=== PATIENT | female | born 1970 | race African-American/Black ===

== ENCOUNTER 2017-06-19 20:16 | Emergency (ER) | payer BC ==
[2017-06-19 20:27] VITALS: BP 153/110; PULSE 107; TEMP 100.2; BMI 64.3
--- NOTE | 2017-06-19 20:55 | PDOC ---
History of Present Illness - General History Source: Patient Exam Limitations: No Limitations - History of Present Illness Initial Comments: 06/19/17 21:00 The patient is a 46 year old female with a significant PMH of arthritis, anxiety, asthma, and recurrent bronchitis who presents to the emergency department with abdominal pain beginning approximately today. The patient describes the abdominal pain as localized in the epigastric region and with associated bloating. The patient also reports difficulty passing stool today. She reports having a similar episode last week which was relieved with laxatives. The patient denies chest pain, shortness of breath, headache and dizziness. Denies fever, chills, nausea, vomit, diarrhea and constipation. Denies dysuria, frequency, urgency and hematuria. Allergies: NKDA Past surgical history: None reported. Social history: No reported cigarette, alcohol, or drug use. PCP: Dr. Shepard 06/19/17 21:04 <David Domingo - Last Filed: 06/19/17 21:00> - General History Source: Patient <Tee Brown - Last Filed: 06/20/17 01:48> - General Chief Complaint: Pain Stated Complaint: STOMACH PAIN Time Seen by Provider: 06/19/17 20:38 Past History <David Domingo - Last Filed: 06/19/17 21:00> - Past Medical History Asthma: Yes HTN: Yes Psychiatric Problems: Yes (ANXIETY) - Family Disease History Family Disease History: Heart Disease: Father - Immunization History Immunization Up to Date: Yes - Suicide/Smoking/Psychosocial Hx Smoking Status: No Smoking History: Never smoked Have you smoked in the past 12 months: No Number of Cigarettes Smoked Daily: 0 Cigars Per Day: 0 Information on smoking cessation initiated: No Hx Alcohol Use: No Drug/Substance Use Hx: No Substance Use Type: None Hx Substance Use Treatment: No <Tee Brown - Last Filed: 06/20/17 01:48> - Past Medical History Allergies/Adverse Reactions: Allergies Allergy/AdvReac Type Severity Reaction Status Date / Time No Known Allergies Allergy Verified 06/19/17 20:27 Home Medications: Ambulatory Orders Albuterol Sulfate Inhaler - 1 - 2 inhaler IH PRN PRN 04/22/16 Albuterol Sulfate Inhaler - [Ventolin HFA Inhaler -] 1 - 2 inh PO QID PRN #1 inhaler 11/29/16 Ibuprofen 800 mg PO TID #30 tablet 06/20/17 Levofloxacin [Levaquin -] 500 mg PO DAILY #7 tablet 06/20/17 Metronidazole [Flagyl] 500 mg PO BID #14 tablet 06/20/17 Ondansetron [Zofran *Odt*] 4 mg SL TID #30 od.tablet 06/20/17 Review of Systems - Review of Systems Able to Perform ROS?: Yes Comments:: 06/19/17 21:04 CONSTITUTIONAL: Absent: fever, chills, diaphoresis, generalized weakness, malaise, loss of appetite HEENT: Absent: rhinorrhea, nasal congestion, throat pain, throat swelling, difficulty swallowing, mouth swelling, ear pain, eye pain, visual Changes CARDIOVASCULAR: Absent: chest pain, syncope, palpitations, irregular heart rate, lightheadedness , peripheral edema RESPIRATORY: Absent: cough, shortness of breath, dyspnea with exertion, orthopnea, wheezing, stridor, hemoptysis GASTROINTESTINAL: (+) Epigastric pain. (+) Nausea. (+) Constipation. Absent: abdominal distension, vomiting, diarrhea, melena, hematochezia GENITOURINARY: Absent: dysuria, frequency, urgency, hesitancy, hematuria, flank pain, genital pain MUSCULOSKELETAL: Absent: myalgia, arthralgia, joint swelling SKIN: Absent: rash, itching, pallor HEMATOLOGIC/IMMUNOLOGIC: Absent: easy bleeding, easy bruising, lymphadenopathy, frequent infections ENDOCRINE: Absent: unexplained weight gain, unexplained weight loss, heat intolerance, cold intolerance NEUROLOGIC: Absent: headache, focal weakness or paresthesias, dizziness, unsteady gait, seizure, mental status changes, bladder or bowel incontinence PSYCHIATRIC: Absent: anxiety, depression, suicidal or homicidal ideation, hallucinations. <David Domingo - Last Filed: 06/19/17 21:00> *Physical Exam - Vital Signs Last Vital Signs Temp Pulse Resp BP Pulse Ox 100.2 F H 107 H 23 153/110 100 06/19/17 20:24 06/19/17 20:24 06/19/17 20:24 06/19/17 20:24 06/19/17 20:24 - Physical Exam Comments: 06/19/17 21:04 GENERAL: Well developed, well nourished. Awake and alert. No acute distress. HEENT: Normocephalic, atraumatic. PERRLA, EOMI. No conjunctival pallor. Sclera are non- icteric. Moist mucous membranes. Oropharynx is clear. NECK: Supple. Full ROM. No JVD. Carotid pulses 2+ and symmetric, without bruits. No thyromegaly. No lymphadenopathy. CARDIOVASCULAR: Regular rate and rhythm. No murmurs, rubs, or gallops. Distal pulses are 2+ and symmetric. PULMONARY: No evidence of respiratory distress. Lungs clear to auscultation bilaterally. No wheezing, rales or rhonchi. ABDOMINAL: (+) Mild tenderness to epigastric region. Soft. Non-distended. No rebound or guarding. No organomegaly. Normoactive bowel sounds. MUSCULOSKELETAL Normal range of motion at all joints. No bony deformities or tenderness. No CVA tenderness. EXTREMITIES: No cyanosis. No clubbing. No edema. No calf tenderness. SKIN: Warm and dry. Normal capillary refill. No rashes. No jaundice. NEUROLOGICAL: Alert, awake, appropriate. Cranial nerves 2-12 intact. No deficits to light touch and temperature in face, upper extremities and lower extremities. No motor deficits in the in face, upper extremities and lower extremities. Normoreflexic in the upper and lower extremities. Normal speech. Toes are downgoing bilaterally. Gait is normal without ataxia. PSYCHIATRIC: Cooperative. Good eye contact. Appropriate mood and affect. <David Domingo - Last Filed: 06/19/17 21:00> - Vital Signs Last Vital Signs Temp Pulse Resp BP Pulse Ox 100.2 F H 107 H 23 153/110 100 06/19/17 20:24 06/19/17 20:24 06/19/17 20:24 06/19/17 20:24 06/19/17 20:24 <Tee Brown - Last Filed: 06/20/17 01:48> ED Treatment Course - LABORATORY CBC & Chemistry Diagram: 06/19/17 21:15 06/19/17 21:15 <Tee Brown - Last Filed: 06/20/17 01:48> Medical Decision Making - Medical Decision Making 06/20/17 00:12 Dr. Brown: The scribe's documentation has been prepared under my direction and personally reviewed by me in its entirery. I confirm that the note above accurately reflects all work, treatment, procedures, and medical decision making performed by me. Attempted to have cat scan of Abd/ Pel done, however pt was too big and couldn' t completely pass through the scanner. Xray has attempted as well. Pt states she has been able to pass stool since she drank contrast <Tee Brown - Last Filed: 06/20/17 01:48> *DC/Admit/Observation/Transfer - Attestations Scribe Attestion: 06/19/17 21:04 Documentation prepared by David Domingo, acting as medical assistant float for Tee Brown DO. <David Domingo - Last Filed: 06/19/17 21:00> - Discharge Dispostion Admit: No <Tee Brown - Last Filed: 06/20/17 01:48> Diagnosis at time of Disposition: Colitis Abdominal pain Qualifiers: Abdominal location: generalized Qualified Code(s): R10.84 - Generalized abdominal pain - Discharge Dispostion Disposition: HOME Condition at time of disposition: Stable - Prescriptions Prescriptions: Metronidazole [Flagyl] 500 mg PO BID #14 tablet Ibuprofen 800 mg PO TID #30 tablet Levofloxacin [Levaquin -] 500 mg PO DAILY #7 tablet Ondansetron [Zofran *Odt*] 4 mg SL TID #30 od.tablet - Referrals Referrals: Malou Shepard MD [Primary Care Provider] - - Patient Instructions Printed Discharge Instructions: DI for Abdominal Pain-Adult, DI for Colitis Additional Instructions: You may have colitis as per your symptoms. Take medications as directed. Avoid alcohol when taking Flagyl as it has a bad reaction. Follow up with your doctor to see if your symptoms are improving or for proper referral if they are not.
[2017-06-19] MEDS ORDERED: SODIUM CHLORIDE 1,000 ML IV STA (20:56)
[2017-06-19] MEDS ORDERED: ONDANSETRON 4 MG/2 ML VIAL IVPUSH STA (20:57)
[2017-06-19] MEDS ORDERED: KETOROLAC TROMETHAMINE 30 MG/1 ML VIAL IVPUSH ONE (20:57)
[2017-06-19] MEDS ORDERED: PANTOPRAZOLE SODIUM 40 MG in SODIUM CHLORIDE 100 ML IVPB ONE (20:57)
[2017-06-19] MEDS ORDERED: ALPRAZolam 0.25 MG TABLET PO ONE (21:02)
[2017-06-19] MEDS ORDERED: ONDANSETRON 4 MG/2 ML VIAL ONE (21:29)
[2017-06-19] MEDS ORDERED: KETOROLAC TROMETHAMINE 30 MG/1 ML VIAL ONE (21:29)
[2017-06-19] MEDS ORDERED: PANTOPRAZOLE SODIUM 100 ML IVPB ONE (21:29)
[2017-06-19] MEDS ORDERED: ALPRAZolam 0.25 MG TABLET ONE (21:29)
[2017-06-19 21:35] LABS: EOSINOPHIL 0.3 % (0-4.5); MCH 24.8 pg (25.7-33.7); MCHC 31.7 g/dl (32.0-36.0); MEAN CELL VOLUME 78.2 fl (80-96); MEAN PLT VOLUME 9.7 fl (7.5-11.1); PLATELET COUNT 271 K/MM3 (134-434); RDW 15.5 % (11.6-15.6); WHITE BLOOD COUNT 11.6 K/mm3 (4.0-10.0)
[2017-06-19 21:49] LABS: INR 1.14 (0.82-1.09); PROTHROMBIN TIME (PATIENT) 12.6 SEC (9.98-11.88)
[2017-06-19 22:00] LABS: ALBUMIN 3.5 g/dl (3.4-5.0); ALK PHOS 83 U/L (45-117); ANION GAP 5 (8-16); BILIRUBIN,TOTAL 0.4 mg/dL (0.2-1.0); CALCIUM 9.5 mg/dL (8.5-10.1); CO2 31 mmol/L (21-32); CREATININE 0.8 mg/dL (0.55-1.02); GLUCOSE,RANDOM 98 mg/dL (74-106); MAGNESIUM 1.7 mg/dL (1.8-2.4); SGOT/AST 17 U/L (15-37); SGPT/ALT 20 U/L (12-78); TOT PROT 7.6 g/dl (6.4-8.2)
[2017-06-19 23:36] LABS: URINE APPEARANCE SLCLOUDY; URINE BILIRUBIN NEGATIVE (NEGATIVE); URINE BLOOD NEGATIVE (NEGATIVE); URINE COLOR YELLOW; URINE GLUCOSE (UA) NEGATIVE (NEGATIVE); URINE KETONE NEGATIVE (NEGATIVE); URINE LEUK ESTERASE NEGATIVE (NEGATIVE); URINE NITRITE NEGATIVE (NEGATIVE); URINE UROBILINOGEN NEGATIVE mg/dL (0.2-1.0)
[2017-06-19 23:38] LABS: URINE PROTEIN 1+ (NEGATIVE)
[2017-06-19 23:42] LABS: CALCIUM OXALATE CRYSTALS MANY /hpf (NONE SEEN); URINE MUCUS RARE; URINE WBC 6 /hpf (3-5)
[2017-06-20] MEDS ORDERED: DICYCLOMINE HCL 10 MG CAPSULE PO ONE (00:50)
[2017-06-20] MEDS ORDERED: DICYCLOMINE HCL 10 MG CAPSULE ONE (00:54)
[2017-06-20] MEDS ORDERED: metroNIDAZOLE 250 MG TABLET PO ONE (01:39)
[2017-06-20] MEDS ORDERED: LEVOFLOXACIN 500 MG TABLET (FP) PO ONE (01:39)
[2017-06-20] MEDS ORDERED: LEVOFLOXACIN 500 MG TABLET (FP) ONE (01:46)
[2017-06-20] MEDS ORDERED: metroNIDAZOLE 250 MG TABLET ONE (01:46)
== END 2017-06-20 02:01 | disposition home or self-care (01) ==
LOC: JER 20:16
PROC: 3E033GC Introduction of Other Therapeutic Substance into Peripheral Vein, Percutaneous Approach (ICD-10-PCS; principal; 2017-06-19)
PROC: 3E0333Z Introduction of Anti-inflammatory into Peripheral Vein, Percutaneous Approach (ICD-10-PCS; 2017-06-19)
PROC: 3E033GC Introduction of Other Therapeutic Substance into Peripheral Vein, Percutaneous Approach (ICD-10-PCS; 2017-06-19)
DX: K52.9 Noninfective gastroenteritis and colitis, unspecified (principal); J45.909 Unspecified asthma, uncomplicated; F41.9 Anxiety disorder, unspecified; M12.9 Arthropathy, unspecified
CPT/HCPCS: 36415; 74176-TC; 80053; 81003; 81015; 83735; 84703; 85025; 85610; 87040; 87086; 99283-25

== ENCOUNTER 2017-07-07 05:19 | Emergency (ER) | payer BC ==
--- NOTE | 2017-07-07 05:47 | PDOC ---
History of Present Illness - General Chief Complaint: Edema Stated Complaint: SWOLLEN LEGS Time Seen by Provider: 07/07/17 05:40 - History of Present Illness Initial Comments: 07/07/17 05:52 The patient is a 46 year old female with a history of morbid obesity, arthritis who presents for evaluation of left lower extremity redness and swelling. The patient reports redness to her left lower extremity beginning 1 day ago and prompting her presentation to the ED. She has had several presentation's in the past with lower extremity cellulitis treated with po antibiotics. She reports two cases in her left leg and one on her right leg. She states that she came in today because she "knew it would get worse". She reports some subjective fevers, but denies chills, SOB, chest pain, abdominal pain, or changes with urination or bowel movements. Past History - Past Medical History Allergies/Adverse Reactions: Allergies Allergy/AdvReac Type Severity Reaction Status Date / Time No Known Allergies Allergy Verified 07/07/17 07:36 Home Medications: Ambulatory Orders Albuterol Sulfate Inhaler - [Ventolin HFA Inhaler -] 1 - 2 inh PO QID PRN #1 inhaler 11/29/16 Ibuprofen 800 mg PO TID #30 tablet 06/20/17 Alprazolam [Xanax] 1 mg PO TID 07/07/17 Amlodipine Besylate [Norvasc -] 2.5 mg PO DAILY #14 tablet 07/07/17 Cephalexin [Keflex] 500 mg PO Q6H #40 capsule 07/07/17 Asthma: Yes HTN: Yes Psychiatric Problems: Yes (ANXIETY) Other medical history: colitis - Family Disease History Family Disease History: Heart Disease: Father - Immunization History Immunization Up to Date: Yes - Suicide/Smoking/Psychosocial Hx Smoking Status: No Smoking History: Never smoked Have you smoked in the past 12 months: No Number of Cigarettes Smoked Daily: 0 Cigars Per Day: 0 Information on smoking cessation initiated: No Hx Alcohol Use: No Drug/Substance Use Hx: No Substance Use Type: None Hx Substance Use Treatment: No Review of Systems - Review of Systems Comments:: 07/07/17 06:01 Constitutional: Fevers. No chills, fatigue, malaise HEENT: No Rhinorrhea, nasal congestion, visual changes Cardiovascular: No chest pain, syncope, palpitations, lightheadedness Respiratory: No Cough, SOB, Hemoptysis, Gastrointestinal: No Abdominal pain, Nausea, Vomiting, Constipation, Diarrhea, Melena Genitourinary: No Dysuria, Frequency, Urgency, Hesitancy, Hematuria, Flank pain Musculoskeletal: Left lower extremity redness. No Myalgia, arthralgia Skin: No rashes, bruising, pallor Neurologic: No Headache, Dizziness, Numbness, Weakness, or Tingling *Physical Exam - Vital Signs Last Vital Signs Temp Pulse Resp BP Pulse Ox 98.2 F 100 H 17 191/106 99 07/07/17 05:40 07/07/17 05:40 07/07/17 05:40 07/07/17 05:40 07/07/17 05:40 - Physical Exam Comments: 07/07/17 06:02 General Appearance: Nourished. No Apparent Distress HEENT: EOMI, TESSA. No Pharyngeal Erythema, Tonsillar Exudate, Tonsillar Erythema Neck: No Cervical Lymphadenopathy Respiratory/Chest: Lungs Clear, Normal Breath Sounds. No Crackles, Rales, Rhonchi, Wheezing Cardiovascular: Regular Rhythm, Regular Rate. No Murmur, Gallops, Rubs Gastrointestinal/Abdominal: Normal Bowel Sounds, Soft. No Guarding, Rebound, Tenderness Musculoskeletal: No CVA Tenderness Extremity: Bilateral lower extremity edema. Notable warmth and erythema to the left lower extremity between the ankle and the knee. Normal Capillary Refill Integumentary: Normal Color, Dry, Warm Neurologic: Fully Oriented, Alert, Normal Mood/Affect, Normal Response, ED Treatment Course - LABORATORY CBC & Chemistry Diagram: 07/07/17 06:01 07/07/17 06:01 Medical Decision Making - Medical Decision Making 07/07/17 06:04 The patient is a 46 year old female with a history of morbid obesity, arthritis who presents for evaluation of left lower extremity redness and swelling. Given the patient's presentation of left lower extremity warmth and erythema as well as a history of cellulitis, it is likely her symptoms are due to a cellulitis. We will obtain a cbc, cmp and chest plain film to evaluate here in the ED. The patient was found to be hypertensive here in the ED and we will treat her with metoprolol and lasix. We will give her a gram of ancef to help manage her infection. We will continue to monitor and reassess. *DC/Admit/Observation/Transfer Diagnosis at time of Disposition: Cellulitis Qualifiers: Site of cellulitis: extremity Site of cellulitis of extremity: lower extremity Laterality: left Qualified Code(s): L03.116 - Cellulitis of left lower limb - Discharge Dispostion Disposition: HOME Condition at time of disposition: Stable - Prescriptions Prescriptions: Cephalexin [Keflex] 500 mg PO Q6H #40 capsule Amlodipine Besylate [Norvasc -] 2.5 mg PO DAILY #14 tablet - Referrals Referrals: Malou Shepard MD [Primary Care Provider] - - Patient Instructions Printed Discharge Instructions: DI for Cellulitis -- Adult Additional Instructions: Take your medications as prescribed (keflex and norvasc). Follow up with your primary care provider within 1 week. If you have worsening redness, pain, fever, chills, chest pain, or shortness of breath come back to the hospital immediately.
[2017-07-07] MEDS ORDERED: CEFAZOLIN 1 GM in DEXTROSE 5%-WATER - 50 ML IVPB ONE (05:48)
[2017-07-07] MEDS ORDERED: FUROSEMIDE 40 MG/4 ML INJECTABLE VIAL IVPUSH ONE (05:49)
[2017-07-07] MEDS ORDERED: METOPROLOL SUCCINATE 50 MG TAB.SR.24H (FP) PO ONE ×2 (05:49→05:50)
[2017-07-07] MEDS ORDERED: METOPROLOL SUCCINATE 50 MG TAB.SR.24H (FP) ONE (05:50)
[2017-07-07] MEDS ORDERED: CEFAZOLIN 1 GM/D5W 50 ML ONE (05:51)
[2017-07-07] MEDS ORDERED: FUROSEMIDE 40 MG/4 ML INJECTABLE VIAL ONE (05:51)
[2017-07-07 05:58] VITALS: BMI 64.3
[2017-07-07 06:09] LABS: BASOPHIL 0.2 % (0-2.0); EOSINOPHIL 0.1 % (0-4.5); MCH 24.8 pg (25.7-33.7); MCHC 32.5 g/dl (32.0-36.0); MEAN CELL VOLUME 76.4 fl (80-96); MEAN PLT VOLUME 8.7 fl (7.5-11.1); NEUTROPHILS 72.7 % (42.8-82.8); PLATELET COUNT 271 K/MM3 (134-434); RDW 15.6 % (11.6-15.6)
[2017-07-07 06:38] LABS: ALBUMIN 3.5 g/dl (3.4-5.0); ALK PHOS 69 U/L (45-117); ANION GAP 9 (8-16); BILIRUBIN,TOTAL 0.4 mg/dL (0.2-1.0); CALCIUM 8.6 mg/dL (8.5-10.1); CO2 26 mmol/L (21-32); CREATININE 0.9 mg/dL (0.55-1.02); GLUCOSE,RANDOM 103 mg/dL (74-106); SGOT/AST 16 U/L (15-37); SGPT/ALT 18 U/L (12-78); TOT PROT 7.7 g/dl (6.4-8.2)
--- NOTE | 2017-07-07 06:57 | PDOC ---
Attending Attestation - Resident Resident Name: Jesse Farr - HPI HPI: 07/07/17 06:56 Pt comes with edema of her legs, cellultis and with HTN - Physicial Exam PE: 07/07/17 06:56 Agree with resident exam - Medical Decision Making 07/07/17 06:57 Labs pending. Pt will be signed out to the day team who will reeval the patient.
[2017-07-07] MEDS ORDERED: POTASSIUM CHLORIDE TABS 20 MEQ TABLET.ER (FP) PO ONE ×2 (07:02→07:18)
--- NOTE | 2017-07-07 07:13 | PDOC ---
*Physical Exam - Vital Signs Last Vital Signs Temp Pulse Resp BP Pulse Ox 98.2 F 88 18 158/95 100 07/07/17 05:40 07/07/17 06:50 07/07/17 06:50 07/07/17 06:50 07/07/17 06:50 ED Treatment Course - LABORATORY CBC & Chemistry Diagram: 07/07/17 06:01 07/07/17 06:01 - ADDITIONAL ORDERS Additional order review: Laboratory Results 07/07/17 07/07/17 06:01 06:00 Sodium 136 Potassium 3.2 L Chloride 101 Carbon Dioxide 26 Anion Gap 9 BUN 10 D Creatinine 0.9 Creat Clearance w eGFR > 60 Random Glucose 103 Calcium 8.6 Total Bilirubin 0.4 AST 16 ALT 18 Alkaline Phosphatase 69 Total Protein 7.7 Albumin 3.5 Beta HCG, Quant < 1.0 07/07/17 06:01 RBC 4.34 MCV 76.4 L MCHC 32.5 RDW 15.6 MPV 8.7 D Neutrophils % 72.7 Lymphocytes % 20.0 D Monocytes % 7.0 Eosinophils % 0.1 Basophils % 0.2 - Medications Given in the ED: ED Medications Discontinued Medications Generic Name Dose Route Start Last Admin Trade Name Freq PRN Reason Stop Dose Admin Furosemide 40 mg 07/07/17 05:49 07/07/17 06:06 Lasix Injection - IVPUSH 07/07/17 05:50 40 mg ONCE ONE Administration Cefazolin Sodium 1 gm/ 50 mls @ 100 mls/hr 07/07/17 05:48 07/07/17 06:06 Dextrose IVPB 07/07/17 06:17 100 mls/hr ONCE ONE Administration Metoprolol Succinate 40 mg 07/07/17 05:49 07/07/17 06:06 Toprol Xl - PO 07/07/17 05:50 Not Given ONCE ONE Metoprolol Succinate 50 mg 07/07/17 05:50 07/07/17 06:06 Toprol Xl - PO 07/07/17 05:51 50 mg ONCE ONE Administration Medical Decision Making - Medical Decision Making 07/07/17 07:12 46 y.o. F with pmh of morbid obesity and arthritis presenting with LLE cellulitis. Pending CXR. Patiet treated with metoprolol and lasix. Given 1g of IV ancef. Will continue to monitor and reassess. *DC/Admit/Observation/Transfer Diagnosis at time of Disposition: Cellulitis Qualifiers: Site of cellulitis: extremity Site of cellulitis of extremity: lower extremity Laterality: left Qualified Code(s): L03.116 - Cellulitis of left lower limb; L03.116 - Cellulitis of left lower limb - Discharge Dispostion Disposition: HOME Condition at time of disposition: Stable - Prescriptions Prescriptions: Cephalexin [Keflex] 500 mg PO Q6H #40 capsule Amlodipine Besylate [Norvasc -] 2.5 mg PO DAILY #14 tablet - Patient Instructions Printed Discharge Instructions: DI for Cellulitis -- Adult Additional Instructions: Take your medications as prescribed (keflex and norvasc). Follow up with your primary care provider within 1 week. If you have worsening redness, pain, fever, chills, chest pain, or shortness of breath come back to the hospital immediately.
--- NOTE | 2017-07-07 07:39 | PDOC ---
*Physical Exam - Vital Signs Last Vital Signs Temp Pulse Resp BP Pulse Ox 98.2 F 88 18 158/95 100 07/07/17 05:40 07/07/17 06:50 07/07/17 06:50 07/07/17 06:50 07/07/17 06:50 - Physical Exam Comments: 07/07/17 08:14 gen: aaox3, nad heart: reg lungs: clear abd: soft, obese ext: LLE cellulitis without lymphangitic spread neuro: no focal deficits ED Treatment Course - LABORATORY CBC & Chemistry Diagram: 07/07/17 06:01 07/07/17 06:01 - ADDITIONAL ORDERS Additional order review: Laboratory Results 07/07/17 07/07/17 06:01 06:00 Sodium 136 Potassium 3.2 L Chloride 101 Carbon Dioxide 26 Anion Gap 9 BUN 10 D Creatinine 0.9 Creat Clearance w eGFR > 60 Random Glucose 103 Calcium 8.6 Total Bilirubin 0.4 AST 16 ALT 18 Alkaline Phosphatase 69 Total Protein 7.7 Albumin 3.5 Beta HCG, Quant < 1.0 07/07/17 06:01 RBC 4.34 MCV 76.4 L MCHC 32.5 RDW 15.6 MPV 8.7 D Neutrophils % 72.7 Lymphocytes % 20.0 D Monocytes % 7.0 Eosinophils % 0.1 Basophils % 0.2 - Medications Given in the ED: ED Medications Discontinued Medications Generic Name Dose Route Start Last Admin Trade Name Rey PRN Reason Stop Dose Admin Furosemide 40 mg 07/07/17 05:49 07/07/17 06:06 Lasix Injection - IVPUSH 07/07/17 05:50 40 mg ONCE ONE Administration Cefazolin Sodium 1 gm/ 50 mls @ 100 mls/hr 07/07/17 05:48 07/07/17 06:06 Dextrose IVPB 07/07/17 06:17 100 mls/hr ONCE ONE Administration Metoprolol Succinate 40 mg 07/07/17 05:49 07/07/17 06:06 Toprol Xl - PO 07/07/17 05:50 Not Given ONCE ONE Metoprolol Succinate 50 mg 07/07/17 05:50 07/07/17 06:06 Toprol Xl - PO 07/07/17 05:51 50 mg ONCE ONE Administration Potassium Chloride 40 meq 07/07/17 07:02 10/21/17 07:19 K-Dur - PO 07/07/17 07:03 40 meq ONCE ONE Administration Medical Decision Making - Medical Decision Making 07/07/17 08:15 a/p: 46yo female with LLE cellulitis -no fevers -no elevated WBC -will try oupt abx -cellulitis marked -gave instructions on all reasons to return to the ED -elevated BP, hx htn, out of norvasc 2.5mg tabs -will send refill to Pharmacy with abx rx -stable for dc to home -pt refusing cxr, requesting d/c to home -no cough, no cp/sob, *DC/Admit/Observation/Transfer Diagnosis at time of Disposition: Cellulitis - Discharge Dispostion Disposition: HOME Condition at time of disposition: Stable Admit: No - Referrals Referrals: Malou Shepard MD [Primary Care Provider] -
[2017-07-07 08:24] VITALS: BP 160/99; PULSE 80; TEMP 98.6
== END 2017-07-07 08:23 | disposition home or self-care (01) ==
LOC: JER 05:19
PROC: 3E03329 Introduction of Other Anti-infective into Peripheral Vein, Percutaneous Approach (ICD-10-PCS; principal; 2017-07-07)
PROC: 3E033GC Introduction of Other Therapeutic Substance into Peripheral Vein, Percutaneous Approach (ICD-10-PCS; 2017-07-07)
DX: L03.116 Cellulitis of left lower limb (principal); I10 Essential (primary) hypertension; J45.909 Unspecified asthma, uncomplicated; F41.9 Anxiety disorder, unspecified; E66.01 Morbid (severe) obesity due to excess calories; Z68.44 Body mass index [BMI] 60.0-69.9, adult
CPT/HCPCS: 36415; 80053; 84702; 85025; 99285-25

== ENCOUNTER 2022-07-16 15:59 | Inpatient (IN) | payer BC, OTHER ==
[2022-07-16] MEDS ORDERED: SODIUM CHLORIDE 0.9% 500 ML INFUS.BAG IV ONE ×2 (17:05→18:24)
[2022-07-16] MEDS ORDERED: VANCOMYCIN 1 GM in D5W (PRE-DOCKED) 1,000 MG/250 ML IVPB ONE (17:06)
[2022-07-16] MEDS ORDERED: PIPERACILLIN/TAZOB 4.5 GM 4.5 GM in DEXTROSE 5%-WATER 100 ML IVPB ONE (17:06)
[2022-07-16] MEDS ORDERED: ACETAMINOPHEN 1000 MG/100 ML BAG IVPB ONE (17:18)
[2022-07-16 18:02] LABS: BASO % 0.1 % (0-2.0); EOS % 0.1 % (0-4.5); LYMPH % 7.5 % (8-40); MCH 25.6 pg (25.7-33.7); MCHC 32.2 g/dl (32.0-36.0); MEAN CELL VOLUME 79.6 fl (80-96); MEAN PLT VOLUME 9.6 fl (7.5-11.1); MONO % 6.1 % (3.8-10.2); NEUT % 86.2 % (42.8-82.8); PLATELET COUNT 397 10^3/uL (134-434); RBC 3.52 M/mm3 (3.60-5.2); RDW 15.7 % (11.6-15.6)
[2022-07-16] MEDS ORDERED: PIPERACILLIN/TAZOB 4.5 GM 4.5 GM/100 ML BAG IVPB ONE (18:05)
[2022-07-16] MEDS ORDERED: ACETAMINOPHEN INJECTION 100 ML IVPB ONE (18:05)
[2022-07-16] MEDS ORDERED: VANCOMYCIN/WATER FOR INJ (PEG) 1,000 MG/200 ML BAG IVPB ONE (18:05)
[2022-07-16 18:22] LABS: CHLORIDE 105 mmol/L (98-107); SODIUM 139 mmol/L (136-145)
[2022-07-16] MEDS ORDERED: CLINDAMYCIN 600MG PREMIX IVPB 600 MG/50 ML BAG IVPB ONE ×2 (18:23→20:37)
[2022-07-16 18:24] LABS: CALCIUM 8.6 mg/dL (8.5-10.1)
[2022-07-16 18:25] LABS: ALBUMIN 2.2 g/dl (3.4-5.0); CO2 27 mmol/L (21-32); GLUCOSE,RANDOM 111 mg/dL (74-106); MAGNESIUM 2.4 mg/dL (1.8-2.4)
[2022-07-16 18:28] LABS: CREATININE 1.4 mg/dL (0.55-1.3); SGOT/AST 70 U/L (15-37); SGPT/ALT 24 U/L (13-61)
[2022-07-16 18:29] LABS: BILIRUBIN,TOTAL 0.5 mg/dL (0.2-1); TOT PROT 8.6 g/dl (6.4-8.2)
[2022-07-16 18:31] LABS: ALK PHOS 138 U/L (45-117)
[2022-07-16 18:42] LABS: ERYTHROCYTE SEDIMENTATION RATE 114 mm/hr (0-20)
[2022-07-16 18:44] LABS: ANION GAP 7 MMOL/L (8-16)
[2022-07-16 18:48] LABS: ANISOCYTOSIS 1+; MACROCYTOSIS 0
[2022-07-16] MEDS ORDERED: KETOROLAC TROMETHAMINE 15 MG/ML VIAL IVPUSH ONE (22:04)
[2022-07-16 22:24] LABS: CALCIUM 8.3 mg/dL (8.5-10.1)
[2022-07-16 22:25] LABS: BLOOD UREA NITROGEN 30.9 mg/dL (7-18)
[2022-07-16 22:28] LABS: CREATININE 1.3 mg/dL (0.55-1.3)
[2022-07-16] MEDS ORDERED: KETOROLAC TROMETHAMINE 15 MG/ML VIAL ONE (22:53)
[2022-07-17] MEDS ORDERED: LACTATED RINGERS SOLUTION 1,000 ML IV STA (00:11)
[2022-07-17] MEDS ORDERED: PIPERACILLIN/TAZOB 3.375 GM 3.375 GM in DEXTROSE 5%-WATER - 50 ML IVPB SCH (00:29)
[2022-07-17] MEDS ORDERED: PIPERACILLIN/TAZOB 3.375 GM 3.375 GM/50 ML BAG IVPB ONE ×3 (02:09→17:26)
[2022-07-17] MEDS ORDERED: morphine SULFATE 4 MG/ML VIAL ONE ×2 (02:37→08:25)
[2022-07-17] MEDS: PIPERACILLIN/TAZOB 3.375 GM 3.375 GM in DEXTROSE 5%-WATER - 50 ML IVPB SCH ×3 (02:37→17:40)
[2022-07-17] MEDS ORDERED: VANCOMYCIN PREMIX 1.5 GM 1,500 MG/300 ML BAG IVPB SCH ×3 (06:00→18:00)
[2022-07-17] MEDS ORDERED: VANCOMYCIN/WATER 1500 MG/300 ML PREMIXED BAG IVPB SCH (06:00)
[2022-07-17 06:48] LABS: HEMATOCRIT 25.4 % (32.4-45.2); HEMOGLOBIN 7.9 GM/dL (10.7-15.3); MCH 24.5 pg (25.7-33.7); MCHC 30.9 g/dl (32.0-36.0); MEAN CELL VOLUME 79.2 fl (80-96); MEAN PLT VOLUME 9.7 fl (7.5-11.1); PLATELET COUNT 404 10^3/uL (134-434); RBC 3.21 M/mm3 (3.60-5.2); RDW 15.5 % (11.6-15.6); WHITE BLOOD COUNT 23.6 K/mm3 (4.0-10.0)
[2022-07-17 07:04] LABS: BLOOD UREA NITROGEN 28.8 mg/dL (7-18); CALCIUM 8.4 mg/dL (8.5-10.1)
[2022-07-17 07:05] LABS: MAGNESIUM 1.9 mg/dL (1.8-2.4)
[2022-07-17 07:07] LABS: PHOSPHOROUS 3.6 mg/dL (2.5-4.9)
[2022-07-17 07:08] LABS: CREATININE 1.3 mg/dL (0.55-1.3)
[2022-07-17 07:09] LABS: BILIRUBIN,TOTAL 0.5 mg/dL (0.2-1); TOT PROT 7.2 g/dl (6.4-8.2)
[2022-07-17 08:43] LABS: ANISOCYTOSIS 0; HELMET CELLS 0; HOWELL-JOLLY BODIES 0; MACROCYTOSIS 0; OVALOCYTE 0; ROULEAU 0; SICKELED CELLS 0; TARGET CELLS 0; TEAR DROP CELLS 0; TOXIC GRANULATION 0
[2022-07-17] MEDS ORDERED: amLODIPine BESYLATE 10 MG TABLET (FP) ONE (11:19)
[2022-07-17] MEDS ORDERED: ENOXAPARIN NA (PORCINE) 40 MG/0.4 ML DISP.SYRIN SQ ONE (11:19)
[2022-07-17] MEDS: amLODIPine BESYLATE 10 MG TABLET (FP) PO SCH (11:35)
[2022-07-17] MEDS: ENOXAPARIN NA (PORCINE) 40 MG/0.4 ML DISP.SYRIN SQ SCH ×2 (11:35→22:50)
[2022-07-17] MEDS ORDERED: ACETAMINOPHEN 325 MG TABLET (FP) PO PRN (15:31)
[2022-07-17] MEDS: morphine SULFATE 4 MG/ML VIAL IVPUSH PRN (22:49)
[2022-07-18 00:47] VITALS: BMI 56.7
[2022-07-18] MEDS: ACETAMINOPHEN 325 MG TABLET (FP) PO PRN ×3 (00:52→22:48)
[2022-07-18] MEDS: PIPERACILLIN/TAZOB 3.375 GM 3.375 GM in DEXTROSE 5%-WATER - 50 ML IVPB SCH ×3 (01:37→17:36)
[2022-07-18] MEDS: morphine SULFATE 4 MG/ML VIAL IVPUSH PRN (08:35)
[2022-07-18 10:35] LABS: HEMATOCRIT 27.7 % (32.4-45.2); HEMOGLOBIN 8.6 GM/dL (10.7-15.3); MCH 24.5 pg (25.7-33.7); MCHC 30.9 g/dl (32.0-36.0); MEAN CELL VOLUME 79.2 fl (80-96); MEAN PLT VOLUME 10.1 fl (7.5-11.1); PLATELET COUNT 463 10^3/uL (134-434); RDW 15.3 % (11.6-15.6); WHITE BLOOD COUNT 23.5 K/mm3 (4.0-10.0)
[2022-07-18] MEDS: amLODIPine BESYLATE 10 MG TABLET (FP) PO SCH (11:04)
[2022-07-18] MEDS: ENOXAPARIN NA (PORCINE) 40 MG/0.4 ML DISP.SYRIN SQ SCH ×2 (11:04→22:37)
[2022-07-18] MEDS: oxyCODONE HCL 5 MG TABLET PO PRN ×3 (11:08→22:47)
[2022-07-18 11:14] LABS: ALBUMIN 2.1 g/dl (3.4-5.0)
[2022-07-18 11:17] LABS: CREATININE 0.9 mg/dL (0.55-1.3); PHOSPHOROUS 3.5 mg/dL (2.5-4.9)
[2022-07-18 11:18] LABS: BILIRUBIN,TOTAL 0.5 mg/dL (0.2-1)
[2022-07-18] MEDS ORDERED: VANCOMYCIN HCL 1,500 MG in DEXTROSE 5%-WATER - 250 ML IVPB SCH (12:30)
[2022-07-18 12:52] LABS: ANISOCYTOSIS 1+; MACROCYTOSIS 0
[2022-07-18] MEDS: VANCOMYCIN PREMIX 1.5 GM 1,500 MG/300 ML BAG IVPB SCH (14:08)
[2022-07-19] MEDS: PIPERACILLIN/TAZOB 3.375 GM 3.375 GM in DEXTROSE 5%-WATER - 50 ML IVPB SCH ×3 (02:27→19:46)
[2022-07-19] MEDS: morphine SULFATE 4 MG/ML VIAL IVPUSH PRN (02:27)
[2022-07-19] MEDS: VANCOMYCIN PREMIX 1.5 GM 1,500 MG/300 ML BAG IVPB SCH (03:00)
[2022-07-19] MEDS: oxyCODONE HCL 5 MG TABLET PO PRN ×3 (06:14→18:00)
[2022-07-19] MEDS: ACETAMINOPHEN 325 MG TABLET (FP) PO PRN ×3 (06:16→18:01)
[2022-07-19 09:58] LABS: BASO % 0.3 % (0-2.0); EOS % 0.5 % (0-4.5); HEMATOCRIT 22.7 % (32.4-45.2); HEMOGLOBIN 7.3 GM/dL (10.7-15.3); MCH 25.5 pg (25.7-33.7); MCHC 32.2 g/dl (32.0-36.0); MEAN CELL VOLUME 79.4 fl (80-96); MEAN PLT VOLUME 9.5 fl (7.5-11.1); MONO % 5.9 % (3.8-10.2); NEUT % 80.3 % (42.8-82.8); PLATELET COUNT 350 10^3/uL (134-434); RBC 2.86 M/mm3 (3.60-5.2); RDW 15.4 % (11.6-15.6); WHITE BLOOD COUNT 15.7 K/mm3 (4.0-10.0)
[2022-07-19 10:10] LABS: ALBUMIN 1.8 g/dl (3.4-5.0); CALCIUM 8.3 mg/dL (8.5-10.1)
[2022-07-19 10:11] LABS: MAGNESIUM 1.9 mg/dL (1.8-2.4)
[2022-07-19 10:13] LABS: CREATININE 0.7 mg/dL (0.55-1.3); PHOSPHOROUS 3.6 mg/dL (2.5-4.9)
[2022-07-19 10:14] LABS: BILIRUBIN,TOTAL 0.3 mg/dL (0.2-1); BLOOD UREA NITROGEN 14.7 mg/dL (7-18); TOT PROT 6.9 g/dl (6.4-8.2)
[2022-07-19] MEDS ORDERED: INSULIN (NOVOLOG) ASPART 100 UNITS/ML 10ML VIAL ONE (11:39)
[2022-07-19] MEDS ORDERED: INSULIN (LEVEMIR) 100 UNITS/ML UNITS SQ ONE (11:40)
[2022-07-19] MEDS ORDERED: INSULIN (NOVOLOG MIX 70/30) 100 UNITS/ML MDV SQ ONE (11:40)
[2022-07-19] MEDS: amLODIPine BESYLATE 10 MG TABLET (FP) PO SCH (11:47)
[2022-07-19] MEDS: ENOXAPARIN NA (PORCINE) 40 MG/0.4 ML DISP.SYRIN SQ SCH ×2 (12:20→21:27)
[2022-07-19] MEDS: VANCOMYCIN/WATER FOR INJ (PEG) 1,000 MG/200 ML BAG IVPB SCH (15:21)
[2022-07-19] MEDS ORDERED: LOPERAMIDE HCL 2 MG CAPSULE PO ONE (23:56)
[2022-07-20] MEDS ORDERED: LOPERAMIDE HCL 2 MG CAPSULE PO ONE (00:45)
[2022-07-20] MEDS: oxyCODONE HCL 5 MG TABLET PO PRN ×3 (00:52→17:44)
[2022-07-20] MEDS: ACETAMINOPHEN 325 MG TABLET (FP) PO PRN ×3 (00:56→17:45)
[2022-07-20] MEDS: PIPERACILLIN/TAZOB 3.375 GM 3.375 GM in DEXTROSE 5%-WATER - 50 ML IVPB SCH ×3 (01:19→17:38)
[2022-07-20] MEDS: VANCOMYCIN/WATER FOR INJ (PEG) 1,000 MG/200 ML BAG IVPB SCH ×2 (02:40→14:03)
[2022-07-20] MEDS: LOPERAMIDE HCL 2 MG CAPSULE PO PRN (08:45)
[2022-07-20] MEDS ORDERED: ACETAMINOPHEN 325 MG TABLET (FP) PO PRN (08:56)
[2022-07-20] MEDS: ENOXAPARIN NA (PORCINE) 40 MG/0.4 ML DISP.SYRIN SQ SCH ×2 (09:57→21:09)
[2022-07-20] MEDS: amLODIPine BESYLATE 10 MG TABLET (FP) PO SCH (09:57)
[2022-07-20 10:22] LABS: BASO % 0.2 % (0-2.0); EOS % 0.6 % (0-4.5); HEMATOCRIT 25.5 % (32.4-45.2); HEMOGLOBIN 7.9 GM/dL (10.7-15.3); LYMPH % 15.4 % (8-40); MCH 24.7 pg (25.7-33.7); MEAN CELL VOLUME 79.6 fl (80-96); MEAN PLT VOLUME 9.7 fl (7.5-11.1); MONO % 6.2 % (3.8-10.2); NEUT % 77.6 % (42.8-82.8); PLATELET COUNT 402 10^3/uL (134-434)
[2022-07-20 10:38] LABS: ALBUMIN 1.9 g/dl (3.4-5.0); BLOOD UREA NITROGEN 10.2 mg/dL (7-18); CALCIUM 8.3 mg/dL (8.5-10.1); MAGNESIUM 1.4 mg/dL (1.8-2.4)
[2022-07-20 10:40] LABS: CREATININE 0.6 mg/dL (0.55-1.3); IRON SERUM 25 ug/dL (50-175); TOTAL IRON BINDING CAPACITY 136 ug/dL (250-450)
[2022-07-20 10:42] LABS: BILIRUBIN,TOTAL 0.3 mg/dL (0.2-1); TOT PROT 7.1 g/dl (6.4-8.2)
[2022-07-20] MEDS: morphine SULFATE 4 MG/ML VIAL IVPUSH PRN ×2 (15:54→20:40)
[2022-07-20] MEDS ORDERED: MAGNESIUM 2GM/50ML STERILE WATER IVPB IVPB ONE (17:30)
[2022-07-21] MEDS: oxyCODONE HCL 5 MG TABLET PO PRN ×2 (01:05→20:37)
[2022-07-21] MEDS: ACETAMINOPHEN 325 MG TABLET (FP) PO PRN ×3 (01:06→20:38)
[2022-07-21] MEDS: PIPERACILLIN/TAZOB 3.375 GM 3.375 GM in DEXTROSE 5%-WATER - 50 ML IVPB SCH ×3 (01:10→17:17)
[2022-07-21] MEDS: VANCOMYCIN/WATER FOR INJ (PEG) 1,000 MG/200 ML BAG IVPB SCH ×2 (02:02→14:57)
[2022-07-21] MEDS: LOPERAMIDE HCL 2 MG CAPSULE PO PRN (07:58)
[2022-07-21] MEDS ORDERED: traMADol HCL 50 MG TABLET PO PRN (08:24)
[2022-07-21 09:51] LABS: BASO % 0.5 % (0-2.0); EOS % 0.6 % (0-4.5); HEMATOCRIT 27.2 % (32.4-45.2); HEMOGLOBIN 8.4 GM/dL (10.7-15.3); LYMPH % 14.6 % (8-40); MCH 24.8 pg (25.7-33.7); MEAN CELL VOLUME 80.1 fl (80-96); MEAN PLT VOLUME 9.7 fl (7.5-11.1); MONO % 6.5 % (3.8-10.2); NEUT % 77.8 % (42.8-82.8); PLATELET COUNT 374 10^3/uL (134-434); RDW 15.4 % (11.6-15.6); WHITE BLOOD COUNT 12.3 K/mm3 (4.0-10.0)
[2022-07-21 10:12] LABS: ALBUMIN 2.1 g/dl (3.4-5.0); BLOOD UREA NITROGEN 7.5 mg/dL (7-18); CALCIUM 8.3 mg/dL (8.5-10.1); MAGNESIUM 1.8 mg/dL (1.8-2.4)
[2022-07-21 10:14] LABS: CREATININE 0.5 mg/dL (0.55-1.3); PHOSPHOROUS 2.7 mg/dL (2.5-4.9)
[2022-07-21 10:15] LABS: BILIRUBIN,TOTAL 0.3 mg/dL (0.2-1); TOT PROT 7.6 g/dl (6.4-8.2)
[2022-07-21] MEDS: amLODIPine BESYLATE 10 MG TABLET (FP) PO SCH (10:53)
[2022-07-21] MEDS: ENOXAPARIN NA (PORCINE) 40 MG/0.4 ML DISP.SYRIN SQ SCH ×2 (10:53→21:43)
[2022-07-21] MEDS ORDERED: oxyCODONE HCL 5 MG TABLET PO PRN (13:03)
[2022-07-22] MEDS: PIPERACILLIN/TAZOB 3.375 GM 3.375 GM in DEXTROSE 5%-WATER - 50 ML IVPB SCH ×2 (01:45→10:38)
[2022-07-22] MEDS: VANCOMYCIN/WATER FOR INJ (PEG) 1,000 MG/200 ML BAG IVPB SCH (02:08)
[2022-07-22] MEDS: oxyCODONE HCL 5 MG TABLET PO PRN ×3 (02:53→20:27)
[2022-07-22] MEDS: ACETAMINOPHEN 325 MG TABLET (FP) PO PRN ×3 (02:54→20:28)
[2022-07-22 09:36] LABS: BASO % 0.4 % (0-2.0); EOS % 0.7 % (0-4.5); HEMATOCRIT 27.8 % (32.4-45.2); HEMOGLOBIN 8.8 GM/dL (10.7-15.3); LYMPH % 16.9 % (8-40); MCH 25.1 pg (25.7-33.7); MCHC 31.5 g/dl (32.0-36.0); MEAN CELL VOLUME 79.7 fl (80-96); MONO % 5.3 % (3.8-10.2); NEUT % 76.7 % (42.8-82.8); PLATELET COUNT 438 10^3/uL (134-434); RBC 3.49 M/mm3 (3.60-5.2); WHITE BLOOD COUNT 11.7 K/mm3 (4.0-10.0)
[2022-07-22 10:07] LABS: ALBUMIN 2.2 g/dl (3.4-5.0); BLOOD UREA NITROGEN 8.9 mg/dL (7-18); CALCIUM 8.8 mg/dL (8.5-10.1); MAGNESIUM 1.6 mg/dL (1.8-2.4)
[2022-07-22 10:09] LABS: CREATININE 0.7 mg/dL (0.55-1.3); PHOSPHOROUS 3.1 mg/dL (2.5-4.9)
[2022-07-22 10:10] LABS: BILIRUBIN,TOTAL 0.3 mg/dL (0.2-1); TOT PROT 7.5 g/dl (6.4-8.2)
[2022-07-22] MEDS: ENOXAPARIN NA (PORCINE) 40 MG/0.4 ML DISP.SYRIN SQ SCH ×2 (10:40→22:41)
[2022-07-22] MEDS: amLODIPine BESYLATE 10 MG TABLET (FP) PO SCH (10:40)
[2022-07-22] MEDS ORDERED: levoFLOXacin 750 MG TABLET PO SCH (13:30)
[2022-07-22] MEDS ORDERED: MAGNESIUM SULFATE IN WATER 2 GM/50 ML IVPB IVPB ONE (14:15)
[2022-07-22] MEDS ORDERED: MAGNESIUM SULF 50% (8.12 MEQ/2 ML-1 GM VIAL) IVPB ONE (14:15)
[2022-07-22] MEDS: DOXYCYCLINE HYCLATE 100 MG CAPSULE PO SCH (17:04)
[2022-07-23 09:35] LABS: BASO % 0.2 % (0-2.0); EOS % 0.5 % (0-4.5); HEMATOCRIT 26.7 % (32.4-45.2); HEMOGLOBIN 8.6 GM/dL (10.7-15.3); LYMPH % 21.8 % (8-40); MCH 25.6 pg (25.7-33.7); MCHC 32.2 g/dl (32.0-36.0); MEAN CELL VOLUME 79.4 fl (80-96); MEAN PLT VOLUME 8.7 fl (7.5-11.1); MONO % 5.5 % (3.8-10.2); PLATELET COUNT 423 10^3/uL (134-434); RBC 3.36 M/mm3 (3.60-5.2); RDW 15.1 % (11.6-15.6); WHITE BLOOD COUNT 10.4 K/mm3 (4.0-10.0)
[2022-07-23 09:53] LABS: ALBUMIN 2.2 g/dl (3.4-5.0); CALCIUM 8.8 mg/dL (8.5-10.1); MAGNESIUM 1.7 mg/dL (1.8-2.4)
[2022-07-23 09:56] LABS: CREATININE 0.5 mg/dL (0.55-1.3)
[2022-07-23 09:57] LABS: PHOSPHOROUS 3.2 mg/dL (2.5-4.9)
[2022-07-23 09:58] LABS: BILIRUBIN,TOTAL 0.3 mg/dL (0.2-1); TOT PROT 7.3 g/dl (6.4-8.2)
[2022-07-23] MEDS: DOXYCYCLINE HYCLATE 100 MG CAPSULE PO SCH ×2 (10:23→17:02)
[2022-07-23] MEDS: amLODIPine BESYLATE 10 MG TABLET (FP) PO SCH (10:23)
[2022-07-23] MEDS: ENOXAPARIN NA (PORCINE) 40 MG/0.4 ML DISP.SYRIN SQ SCH ×2 (10:24→22:13)
[2022-07-23] MEDS ORDERED: FUROSEMIDE 40 MG TABLET (FP) PO ONE (10:53)
[2022-07-23] MEDS: LOPERAMIDE HCL 2 MG CAPSULE PO PRN (10:54)
[2022-07-23] MEDS: oxyCODONE HCL 5 MG TABLET PO PRN ×2 (15:07→21:28)
[2022-07-23] MEDS: ACETAMINOPHEN 325 MG TABLET (FP) PO PRN ×2 (15:08→21:28)
[2022-07-24] MEDS: oxyCODONE HCL 5 MG TABLET PO PRN ×2 (04:11→10:27)
[2022-07-24] MEDS: ACETAMINOPHEN 325 MG TABLET (FP) PO PRN ×2 (04:12→10:28)
[2022-07-24] MEDS: LOPERAMIDE HCL 2 MG CAPSULE PO PRN (08:23)
[2022-07-24] MEDS: DOXYCYCLINE HYCLATE 100 MG CAPSULE PO SCH (10:28)
[2022-07-24] MEDS: amLODIPine BESYLATE 10 MG TABLET (FP) PO SCH (10:28)
[2022-07-24] MEDS: ENOXAPARIN NA (PORCINE) 40 MG/0.4 ML DISP.SYRIN SQ SCH (10:29)
[2022-07-24 10:39] VITALS: RESP 18
[2022-07-24 11:19] LABS: BASO % 0.2 % (0-2.0); EOS % 0.2 % (0-4.5); HEMATOCRIT 28.7 % (32.4-45.2); HEMOGLOBIN 8.8 GM/dL (10.7-15.3); LYMPH % 20.7 % (8-40); MCH 24.5 pg (25.7-33.7); MCHC 30.9 g/dl (32.0-36.0); MEAN CELL VOLUME 79.4 fl (80-96); MONO % 4.6 % (3.8-10.2); NEUT % 74.3 % (42.8-82.8); PLATELET COUNT 494 10^3/uL (134-434); RBC 3.61 M/mm3 (3.60-5.2); RDW 15.3 % (11.6-15.6); WHITE BLOOD COUNT 11.5 K/mm3 (4.0-10.0)
[2022-07-24 12:10] LABS: ALBUMIN 2.4 g/dl (3.4-5.0); BLOOD UREA NITROGEN 12.7 mg/dL (7-18); CALCIUM 9.2 mg/dL (8.5-10.1); MAGNESIUM 1.5 mg/dL (1.8-2.4)
[2022-07-24 12:13] LABS: CREATININE 0.8 mg/dL (0.55-1.3); PHOSPHOROUS 3.7 mg/dL (2.5-4.9)
[2022-07-24 12:15] LABS: BILIRUBIN,TOTAL 0.2 mg/dL (0.2-1)
[2022-07-24] MEDS ORDERED: MINERAL OIL/PET HY-PHL TOPICAL OINTMENT 454 GM JAR TP SCH (12:15)
[2022-07-24 15:10] VITALS: BP 129/73; PULSE 101; TEMP 97.8
== END 2022-07-24 17:27 | disposition home or self-care (01) | DRG 872 ==
LOC: JER 15:59 → JERBED 17:06 → OBSVTOIN 17:06 → J6S 07-17 21:05 → J8W 07-18 20:31
PROVIDERS: ADMIT Family Medicine; ATTEND Internal Medicine
DX: A41.52 Sepsis due to Pseudomonas (principal); L03.115 Cellulitis of right lower limb; Z68.43 Body mass index [BMI] 50.0-59.9, adult; F41.9 Anxiety disorder, unspecified; J45.909 Unspecified asthma, uncomplicated; I10 Essential (primary) hypertension; E66.01 Morbid (severe) obesity due to excess calories; L30.9 Dermatitis, unspecified; R19.7 Diarrhea, unspecified; D50.9 Iron deficiency anemia, unspecified
CPT/HCPCS: 36415; 73590-TC-RT-FY; 73700-TC-RT; 80048; 80053; 82550; 82607; 82728; 82746; 82962; 83540; 83550; 83735; 84100; 85025; 85045; 85651; 86140; 87040; 87070; 87077; 87081; 87186; 87205; 87324; 87449; 93005; 93010; 93971-TC; 97116-GP; 97162-GP; 99285-25; C9803-CS; G0480; U0003; U0005

== ENCOUNTER 2023-04-05 09:51 | Observation (INO) | payer OTHER ==
[2023-04-05] MEDS ORDERED: PIPERACILLIN/TAZOB 2.25 GM 2.25 GM in DEXTROSE 5%-WATER - 50 ML IVPB ONE (10:39)
[2023-04-05] MEDS ORDERED: PIPERACILLIN/TAZOB 2.25 GM 2.25 GM/50 ML BAG IVPB ONE (10:52)
[2023-04-05] MEDS ORDERED: ACETAMINOPHEN 1000 MG/100 ML BAG IVPB PRN (13:05)
[2023-04-05] MEDS ORDERED: LACTATED RINGERS SOLUTION 1,000 ML/1,000 ML INFUS.BAG IV SCH (13:15)
[2023-04-05 14:20] VITALS: RESP 18; BMI 47.7
[2023-04-05] MEDS ORDERED: PIPERACILLIN/TAZOB 3.375 GM 3.375 GM in DEXTROSE 5%-WATER - 50 ML IVPB SCH (15:00)
[2023-04-05] MEDS: ALPRAZolam 1 MG TABLET PO PRN (15:15)
[2023-04-05] MEDS ORDERED: DEXTROSE 5%-LACTATED RINGERS 1,000 ML IV SCH ×2 (15:30→17:00)
[2023-04-05 15:49] LABS: HEMATOCRIT 31.5 % (32.4-45.2); HEMOGLOBIN 10.2 GM/dL (10.7-15.3); MCH 25.1 pg (25.7-33.7); MCHC 32.4 g/dl (32.0-36.0); MEAN CELL VOLUME 77.6 fl (80-96); MEAN PLT VOLUME 8.9 fl (7.5-11.1); PLATELET COUNT 269 10^3/uL (134-434); RBC 4.06 M/mm3 (3.60-5.2); RDW 15.1 % (11.6-15.6); WHITE BLOOD COUNT 12.3 K/mm3 (4.0-10.0)
[2023-04-05 15:58] LABS: INR 1.26 (0.83-1.09); PROTHROMBIN TIME (PATIENT) 14.6 SEC (9.7-13.0)
[2023-04-05 16:01] LABS: ACTIVATED PTT 34.2 SECONDS (25.2-36.5)
[2023-04-05 16:16] LABS: POTASSIUM 3.9 mmol/L (3.5-5.1)
[2023-04-05 16:17] LABS: CALCIUM 9.3 mg/dL (8.5-10.1)
[2023-04-05 16:19] LABS: ALBUMIN 3.1 g/dl (3.4-5.0); BLOOD UREA NITROGEN 27.9 mg/dL (7-18); MAGNESIUM 2.6 mg/dL (1.8-2.4)
[2023-04-05 16:21] LABS: CREATININE 1.3 mg/dL (0.55-1.3)
[2023-04-05 16:23] LABS: BILIRUBIN,TOTAL 0.3 mg/dL (0.2-1)
[2023-04-05] MEDS: PIPERACILLIN/TAZOB 3.375 GM 3.375 GM in DEXTROSE 5%-WATER - 50 ML IVPB SCH (21:34)
[2023-04-06] MEDS: PIPERACILLIN/TAZOB 3.375 GM 3.375 GM in DEXTROSE 5%-WATER - 50 ML IVPB SCH ×4 (03:29→22:24)
[2023-04-06] MEDS: amLODIPine BESYLATE 10 MG TABLET (FP) PO SCH (09:29)
[2023-04-06] MEDS ORDERED: amLODIPine BESYLATE 10 MG TABLET (FP) PO SCH (10:00)
[2023-04-06 10:11] LABS: HEMATOCRIT 29.5 % (32.4-45.2); HEMOGLOBIN 9.5 GM/dL (10.7-15.3); MCH 25.4 pg (25.7-33.7); MCHC 32.2 g/dl (32.0-36.0); MEAN PLT VOLUME 10.1 fl (7.5-11.1); PLATELET COUNT 298 10^3/uL (134-434); RBC 3.73 M/mm3 (3.60-5.2); RDW 14.7 % (11.6-15.6); WHITE BLOOD COUNT 11.7 K/mm3 (4.0-10.0)
[2023-04-06 10:23] LABS: BLOOD UREA NITROGEN 17.5 mg/dL (7-18)
[2023-04-06 10:24] LABS: ALBUMIN 2.7 g/dl (3.4-5.0); CALCIUM 8.9 mg/dL (8.5-10.1)
[2023-04-06 10:26] LABS: CREATININE 0.9 mg/dL (0.55-1.3); MAGNESIUM 2.4 mg/dL (1.8-2.4)
[2023-04-06 10:28] LABS: BILIRUBIN,TOTAL 0.6 mg/dL (0.2-1); TOT PROT 7.4 g/dl (6.4-8.2)
[2023-04-06 21:54] LABS: EPI CELLS 14 /uL (0-25.1); HYALINE CASTS 1 /uL (0-3.1); PH,URINE 6.5 (5.0-8.0); URINE APPEARANCE CLOUDY; URINE BACTERIA 2008 /uL (0-1359); URINE BILIRUBIN NEGATIVE (NEGATIVE); URINE COLOR YELLOW; URINE GLUCOSE (UA) NEGATIVE (NEGATIVE); URINE KETONE NEGATIVE (NEGATIVE); URINE LEUK ESTERASE TRACE (NEGATIVE); URINE NITRITE NEGATIVE (NEGATIVE); URINE PROTEIN TRACE (NEGATIVE); URINE UROBILINOGEN 0.2 mg/dL (0.2-1.0); URINE WBC 18 /uL (0-25.8)
[2023-04-06 21:56] LABS: COCAINE, UR NEGATIVE (NEGATIVE); METHADONE, UR NEGATIVE (NEGATIVE); OPIATES, URI NEGATIVE (NEGATIVE); URINE BARBITURATES NEGATIVE (NEGATIVE)
[2023-04-06 21:57] LABS: PHENCYCLIDINE,URINE NEGATIVE (NEGATIVE); URINE AMPHETAMINES NEGATIVE (NEGATIVE); URINE BENZODIAZEPINES POSITIVE (NEGATIVE)
[2023-04-06 22:03] LABS: URINE RBC 393.4 /uL (0-23.9)
[2023-04-07] MEDS: PIPERACILLIN/TAZOB 3.375 GM 3.375 GM in DEXTROSE 5%-WATER - 50 ML IVPB SCH ×3 (03:40→14:23)
[2023-04-07] MEDS: ALPRAZolam 1 MG TABLET PO PRN ×2 (03:54→04:30)
[2023-04-07 08:04] VITALS: BP 142/88; PULSE 91; TEMP 98.1
[2023-04-07 09:14] LABS: BASO % 0.2 % (0-2.0); EOS % 1.1 % (0-4.5); HEMATOCRIT 29.1 % (32.4-45.2); HEMOGLOBIN 9.4 GM/dL (10.7-15.3); LYMPH % 29.3 % (8-40); MCH 25.4 pg (25.7-33.7); MCHC 32.2 g/dl (32.0-36.0); MEAN PLT VOLUME 9.7 fl (7.5-11.1); MONO % 7.8 % (3.8-10.2); NEUT % 61.6 % (42.8-82.8); PLATELET COUNT 265 10^3/uL (134-434); RBC 3.69 M/mm3 (3.60-5.2); RDW 14.8 % (11.6-15.6); WHITE BLOOD COUNT 8.4 K/mm3 (4.0-10.0)
[2023-04-07] MEDS: amLODIPine BESYLATE 10 MG TABLET (FP) PO SCH (09:15)
[2023-04-07 09:29] LABS: POTASSIUM 4.2 mmol/L (3.5-5.1)
[2023-04-07 09:36] LABS: ALBUMIN 2.6 g/dl (3.4-5.0); BLOOD UREA NITROGEN 13.2 mg/dL (7-18); MAGNESIUM 2.1 mg/dL (1.8-2.4)
[2023-04-07 09:38] LABS: CREATININE 0.7 mg/dL (0.55-1.3)
[2023-04-07 09:39] LABS: BILIRUBIN,TOTAL 0.2 mg/dL (0.2-1); TOT PROT 6.9 g/dl (6.4-8.2)
== END 2023-04-07 15:41 | disposition home or self-care (01) ==
LOC: JER 09:51 → UNDOADMOB 12:29 → INTOOBSV 12:29 → JERBED 12:29 → J8W 13:30 → JERBED 13:30 → J8W 13:43
PROVIDERS: ADMIT Internal Medicine; ATTEND Nurse Practitioner Family
PROC: 3E033NZ Introduction of Analgesics, Hypnotics, Sedatives into Peripheral Vein, Percutaneous Approach (ICD-10-PCS; principal; 2023-04-05)
PROC: 3E033GC Introduction of Other Therapeutic Substance into Peripheral Vein, Percutaneous Approach (ICD-10-PCS; 2023-04-05)
PROC: 3E03329 Introduction of Other Anti-infective into Peripheral Vein, Percutaneous Approach (ICD-10-PCS; 2023-04-05)
DX: N17.9 Acute kidney failure, unspecified (principal); N32.1 Vesicointestinal fistula; K81.0 Acute cholecystitis; Z68.42 Body mass index [BMI] 45.0-49.9, adult; I89.0 Lymphedema, not elsewhere classified; K81.9 Cholecystitis, unspecified; J45.909 Unspecified asthma, uncomplicated; K59.00 Constipation, unspecified; Z86.2 Personal history of diseases of the blood and blood-forming organs and certain disorders involving the immune mechanism; E66.01 Morbid (severe) obesity due to excess calories
CPT/HCPCS: 36415; 74177-TC; 76705-TC; 80053; 80307; 81003; 83605; 83735; 85025; 85027; 85610; 85730; 86140; 86850; 86900; 86901; 87040; 87086; 93005; 93010; 99285-25; G0378; Q9967

== ENCOUNTER 2023-04-24 05:13 | Day surgery (SDC) | payer OTHER ==
[2023-04-16 11:39] VITALS: BMI 47.2
[2023-04-24 10:00] VITALS: TEMP 98.3
[2023-04-24 10:43] VITALS: BP 157/60; PULSE 77; RESP 20
== END 2023-04-24 11:12 | disposition home or self-care (01) ==
LOC: JASU-ENDO 05:13
PROVIDERS: ATTEND Student in an Organized Health Care Education/Training Program
PROC: 0DBP8ZX Excision of Rectum, Via Natural or Artificial Opening Endoscopic, Diagnostic (ICD-10-PCS; principal; 2023-04-24 09:00)
DX: K57.30 Diverticulosis of large intestine without perforation or abscess without bleeding (principal)
CPT/HCPCS: 88305-TC